=== PATIENT | female | born 1970 | race Caucasian/White ===

== ENCOUNTER 2021-10-22 00:17 | Emergency (ER) | payer BC, SELFPAY ==
[~2021-10-22] VITALS: Ht 157.5 cm; Wt 59.0 kg
[~2021-10-22 00:17] MED LIST: MOME17SP5 NS
[2021-10-22 00:35] VITALS: BP_SYST 151
--- NOTE | 2021-10-22 00:35 | NUR ---
Patient to ER bed 2 to gown for evaluation. Side rails up. Report given to Martin ZAPATA.
--- NOTE | 2021-10-22 00:50 | NUR ---
ER at bedside examining patient.
[2021-10-22] MEDS ORDERED: DIPHENHYDRAMINE INJ 50 MG/ML VIAL IVP ONE (01:00)
[2021-10-22] MEDS ORDERED: NACL 0.9% 1,000 ML IV ONE (01:00)
[2021-10-22] MEDS ORDERED: METOCLOPRAMIDE HCL 10 MG/2 ML VIAL IVP ONE (01:00)
[2021-10-22 01:56] LABS: BASOPHILS # (AUTO) 0.1 K/uL (0.0-0.2); BASOPHILS % (AUTO) 0.9 % (0.0-2.0); EOSINOPHILS # (AUTO) 0.2 K/uL (0.0-0.4); EOSINOPHILS % (AUTO) 2.3 % (0.0-4.0); HEMATOCRIT 41.4 % (36-48); HEMOGLOBIN 13.7 g/dL (12.0-16.0); LYMPHOCYTES # (AUTO) 2.6 K/uL (1.0-5.5); LYMPHOCYTES % (AUTO) 26.9 % (20.5-51.5); MEAN CORPUSCULAR HEMOGLOBIN 29 pg (27-31); MEAN CORPUSCULAR HGB CONC 33 % (32-36); MEAN CORPUSCULAR VOLUME 87 fL (79.0-98.0); MONOCYTES # (AUTO) 0.5 K/uL (0.0-1.0); MONOCYTES % (AUTO) 5.2 % (1.7-9.3); NEUTROPHILS # (AUTO) 6.4 K/uL (1.8-7.7); NEUTROPHILS % (AUTO) 64.7 % (40.0-70.0); PLATELET COUNT (AUTO) 282 K/uL (130-430); RED BLOOD CELL COUNT(AUTO) 4.78 MIL/uL (4.2-6.2); RED CELL DISTRIBUTION WIDTH 12.6 % (9.0-15.0); WHITE BLOOD COUNT (AUTO) 9.8 K/uL (4.8-10.8)
--- NOTE | 2021-10-22 02:03 | NUR ---
URINE OBTAINED AND SENT TO LAB
--- NOTE | 2021-10-22 02:04 | NUR ---
51 YR OLD FEMALE AOX4, AMBULATORY FEMALE WITH COMPLAINT OF, HEADACHE WITH NAUSEA AND VOMITING TWO HOURS AGO. PT DENIES ANY CHEST PAIN OR SOB. MD AT THE BEDSIDE. WILL MONITOR NEEDED
[2021-10-22 02:13] LABS: CALCIUM 9.5 mg/dL (8.4-11.0); CREATININE 0.72 mg/dL (0.55-1.30); POTASSIUM 3.9 mmol/L (3.5-5.1)
[2021-10-22 02:20] LABS: ALBUMIN 4.1 g/dL (3.4-4.8); TOTAL BILIRUBIN 0.1 mg/dL (0.0-1.0)
[2021-10-22 02:26] LABS: BILIRUBIN,URINE NEGATIVE (NEGATIVE); BLOOD, URINE NEGATIVE (NEGATIVE); CLARITY/URINE CLEAR (CLEAR); COLOR,URINE YELLOW (YELLOW); GLUCOSE,URINE NEGATIVE (NEGATIVE); KETONES,URINE NEGATIVE (NEGATIVE); LEUKOCYTE ESTERASE ,URINE NEGATIVE (NEGATIVE); NITRITE, URINE NEGATIVE (NEGATIVE); PROTEIN URINE NEGATIVE (NEGATIVE); UROBILINOGEN,URINE 0.2 (0.2-1.0)
[2021-10-22 03:06] VITALS: BP_SYST 131
--- NOTE | 2021-10-22 03:16 | NUR ---
PT NOTIFIED OF DISCHARGE. PT PROVIDED WITH COPY OF LAB REPORT, AND DISCHARGE INSTRUCTIONS. ENCOURAGED PT TO FOLLOW UP WITH PRIMARY CARE DOCTOR WITHIN 3 DAYS. IV DISCONTINUED FROM RIGHT FOREARM WITH CATHETER INTACT, CLEAN GAUZE APPLIED TO SITE WITH PAPER TAPE. PT DISCHARGED WITH ALL BELONGINGS, AMBULATORY WITH ALL BELONGINGS IN STABLE CONDITION. ALL QUESTIONS ANSWERED. UNDERSTANDING VERBALIZED
== END 2021-10-22 03:15 | disposition home or self-care (01) ==
LOC: SED 00:17
DX: R51.9 Headache, unspecified (principal); R11.2 Nausea with vomiting, unspecified
CPT/HCPCS: 36415; 70450; 76376; 80053; 81003; 83690; 85025; 96361; 96374; 96375; 99284; J1200; J2765; J7030